=== PATIENT | male | born 1995 ===

== ENCOUNTER → 2016-11-25 | Outpatient (REF) | payer OTHER | LOC: M LAB REF 16:51 | PROVIDERS: ATTEND Nurse Practitioner Adult Health | DX: A60.00 Herpesviral infection of urogenital system, unspecified (principal) ==

== ENCOUNTER → 2017-07-13 | Outpatient (REF) | payer OTHER | LOC: M LAB REF 12:42 | DX: L03.116 Cellulitis of left lower limb (principal) ==

== ENCOUNTER → 2017-07-13 | Outpatient (REF) | payer OTHER ==
[2017-07-14 10:13] LABS: HSV TYPE II IgG SPECIFIC 1.19 index (0.00-0.90)
== END ==
LOC: M LAB REF 12:43
DX: Z72.51 High risk heterosexual behavior (principal)

== ENCOUNTER → 2017-09-02 | Outpatient (REF) | payer OTHER | LOC: M LAB REF 17:18 | DX: Z22.322 Carrier or suspected carrier of Methicillin resistant Staphylococcus aureus (principal) ==

== ENCOUNTER → 2020-08-28 | Outpatient (REF) | payer OTHER | LOC: M LAB REF 16:15 | PROVIDERS: ATTEND Nurse Practitioner Adult Health | DX: N39.0 Urinary tract infection, site not specified (principal) ==